=== PATIENT | male | born 1965 | race Hispanic/Latino ===

== ENCOUNTER 2018-02-22 10:05 | Inpatient (IN) | payer MEDICAID, OTHER ==
[2018-02-22 10:12] VITALS: BMI 21.2
--- NOTE | 2018-02-22 10:18 | C.PDOC ---
History Of Present Illness 52 y/o male presents to ED sent from [facility] for ETOH detox. Patient was medically cleared and accepted by Dr. Allen. At ED patient denies SI/HI, auditory or visual hallucinations. No other complaints at this time. History Per: Patient History/Exam Limitations: no limitations Onset/Duration Of Symptoms: Days Current Symptoms Are (Timing): Still Present Suicide/Self Injury Attempted (Context): None Modifying Factor(s): Alcohol Past Medical History Reviewed: Historical Data, Nursing Documentation, Vital Signs - Medical History PMH: No Chronic Diseases Surgical History: No Surg Hx Family History: States: No Known Family Hx Review Of Systems Constitutional: Negative for: Fever, Chills Cardiovascular: Negative for: Chest Pain Gastrointestinal: Negative for: Nausea, Vomiting Psych: Positive for: Other (Susbtance abuse). Negative for: Suicidal ideation, Withdrawal Physical Exam - Physical Exam Appears: Non-toxic, No Acute Distress Skin: Warm, Dry, No Rash Head: Atraumatic, Normacephalic Eye(s): bilateral: Normal Inspection Oral Mucosa: Moist Neck: Supple Cardiovascular: Rhythm Regular Respiratory: Normal Breath Sounds, No Rales, No Rhonchi, No Wheezing Gastrointestinal/Abdominal: Soft, No Tenderness, No Guarding, No Rebound Neurological/Psych: Oriented x3, Normal Speech, Normal Cognition, Other (Mild tremors to hands bilaterally noted) ED Course And Treatment - Laboratory Results Result Diagrams: 02/22/18 13:32 O2 Sat by Pulse Oximetry: 100 (RA) Pulse Ox Interpretation: Normal Progress Note: Libriuma administered. Patient already accepted by Dr. Allen will go to detox floor. 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 - Scribe Statement The provider has reviewed the documentation as recorded by the Scribkanwal Cagle All medical record entries made by the Bobibkanwal were at my direction and personally dictated by me. I have reviewed the chart and agree that the record accurately reflects my personal performance of the history, physical exam, medical decision making, and the department course for this patient. I have also personally directed, reviewed, and agree with the discharge instructions and disposition. Decision To Admit - Pt Status Changed To: Hospital Disposition Of: Inpatient - Admit Certification Admit to Inpatient:: After my assessment, the patient will require hospitalization for at least two midnights. This is because of the severity of symptoms shown, intensity of services needed, and/or the medical risk in this patient being treated as an outpatient. - InPatient: Physician Admission Certification: I certify that this patient requires 2 or more midnights of care for the following reason:: Will need more then 2 days for detox - . Bed Request Type: Detox Admitting Physician: Caroline Allen Patient Diagnosis: Alcohol dependence
--- NOTE | 2018-02-22 10:54 | PCM.BM ---
<Marlyn Hernandez - Last Filed: 02/22/18 10:53> Treatment Plan Problems - Problems identified on initial assessmt Potential for alcohol withdrawal Date Initiated: 02/22/18 Assessment reference: NA Status: Active Treatment assets and liabiliti Patient Assests: ADL independent, negotiates basic needs Patient Liabilities: financial problems, poor support system, relationship conflicts, substance abuse - Milieu Protocol Maintain good personal hygiene: daily Encourage regular showers, daily Remind patient to perform daily oral care, daily Assist patient to perform ADL's, every shift Encourage regular showers, every shift Remind patient to perform daily oral care, every shift Assist patient to perform ADL's Maintain personal safety: daily Educate patient to report safety concerns to staff, daily Monitor environment for contraband/sharps, every shift Educate patient to report safety concerns to staff, every shift Monitor environment for contraband/sharps Medication safety: Monitor for expected outcome, potential side effects: daily, every shift, Assess barriers to learning: daily, every shift, Assess readiness for medication education: daily, every shift <Samaria Rodriguez - Last Filed: 02/22/18 11:34> - Diagnosis (1) Alcohol dependence Status: Acute Interventions: 02/22/18 11:34 * Assess 7x/week regarding severity of withdrawal * Educate regarding risks, benefits, side effects and alternatives of medications * Use Motivational Interviewing for abstinence * Use CBT for relapse prevention * Medication management for withdrawal symptoms * Encourage medication assisted treatment *
--- NOTE | 2018-02-22 11:34 | PCM.PSYCH ---
Initial Psychiatric Evaluation - Initial Psychiatric Evaluation Type of Admission: Voluntary Legal Status: Capacity Chief Complaint (in patient's own words): "Too much alcohol" History of Present Illness and Precipitating Events: Pt is a a 52 year old male who is single with one child who is 12 years old. 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 He is cooperative and visibly "withdrawing" with the shakes. Pt began drinking when he was 13 years old but for the past 5 years has been drinking heavily. He drinks 1 pint of vodka a day and the last time was the day before admission. Pt had been sober before for 6-7 years when his daughter was born. Pt denies any seizures related to alcohol use. He has been to two rehabilitation centers which are [facility] and [place]. He has also been in one detoxification at [facility]. Pt has been taking Zoloft one pill a day since his stay there a month ago. He also admits to taking Xanax on and off. Pt smokes 1 pack of cigarettes a day but denies any other substances. He has been hospitalized for psychiatric conditions 5-6 times in his life. Pt is open to entering a prison facility after this detoxification. He is feeling anxious and depressed. Pt denies any suicidal thoughts or attempts in the past. Pt denies any auditory or visual hallucinations, delusions or aamir. Past Medical History: Denies Allergies: Denies Surgical History: Denies Psychiatric History: Depressive disorder Family History: Mother from alcohol use d/o at 49 Legal History: Denies Past Psychiatric History - Past Psychiatric History Previous Treatment History: Intensive Outpatient Pertinent Medical Hx (Current Medical&Sleep Prob, Allergies): Allergies Allergy/AdvReac Type Severity Reaction Status Date / Time No Known Allergies Allergy Verified 02/22/18 10:10 No Known Home Med 02/22/18 Review of Systems - Neurological Neurological: Tremor - Psychiatric Psychiatric: Abnormal Sleep Pattern, Anhedonia, Anxiety, Depression, Difficulty Concentrating. absent: Homicidal Ideation, Paranoia, Suicidal Ideation Mental Status Examination - Personal Presentation Personal Presentation: Looks stated age - Affect Affect: Constricted - Motor Activity Motor Activity: Calm - Reliability in Providing Information Reliability in Providing Information: Good - Speech Speech: Organized - Mood Mood: Depressed, Anxious - Formal Thought Process Formal Thought Process: No Impairment - Cognitive Functions Orientation: Person, Place, Situation, Time Sensorium: Alert Attention/Concentration: Easily distracted Estimate of Intelligence: Average Judgement: Intact, as evidence by: Insight regarding need for hospitalization Memory: Recent intact, as evidence by: Ability to recall events of the day, Remote intact, as evidenced by: Abilit to recall sig. 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 Attend groups and activities Supportive therapy and psychoeducation ND for abstinence CBT for relapse prevention Encourage MAT Refer to rehab or IOP Attend self-help groups as well ND for smoking cessation and patch if needed 34 min Projected ELOS: 4-5 days Prognosis: good w treatment - Smoking Cessation Smoking Cessation Initiated: Yes
[2018-02-22] MEDS: Multiple Vitamins Tab PO SCH (12:30)
[2018-02-22 13:51] LABS: ALB/GLOB RATIO 1.3 (1.0-2.1); ALBUMIN 4.4 g/dL (3.5-5.0); ALT/SGPT 123 U/L (21-72); AST/SGOT 142 U/L (17-59); BLOOD UREA NITROGEN 9 mg/dL (9-20); CALCIUM 9.3 mg/dl (8.6-10.4); GFR NON-AFRICAN AMERICAN > 60
[2018-02-23] MEDS: Multiple Vitamins Tab PO SCH (10:07)
--- NOTE | 2018-02-23 23:10 | PCM.PYCHPN ---
Psychiatric Progress Note - Psychiatric Progress Note Patient seen today, length of contact: 16 min Patient Chief Complaint: "A little better" Problems Identified/Issues Discussed: The pt is seen, chart reviewed, case discussed with staff. The pt is compliant with medications and reports no side-effects. Symptoms are improving but needs more time to stabilize. After care discussed, support and psychoeducation given. Medication Change: Yes (detox changes daily) Medical Record Reviewed: Yes Mental Status Examination - Cognitive Function Orientation: Person, Place, Situation, Time Memory: Intact Attention: WNL Concentration: Poor Association: WNL Fund of Knowledge: WNL - Mood Mood: Depressed, Anxious - Affect Affect: Constricted - Speech Speech: Appropriate - Formal Thought Process Formal Thought Process: No Impairment - Suicidal Ideation Suicidal Ideation: No - Homicidal Ideation Homicidal Ideation: No Goal/Treatment Plan - Goal/Treatment Plan Need for Continued Stay: Discharge may exacerbated symptoms, Severe functional impairment Progress Toward Problem(s) and Goals/Treatment Plan: Librium detox remeron for depression and insomnia Monitor LFTs As needed medications Gabapentin for augmentation if needed All risks, benefits and alternatives of medications, including no medications, discussed and the patient understood and agreed. Attend groups and activities Supportive therapy and psychoeducation LA for abstinence CBT for relapse prevention Encourage MAT Refer to rehab or IOP Attend self-help groups as well LA for smoking cessation and patch if needed
[2018-02-24] MEDS: Multiple Vitamins Tab PO SCH (09:59)
[2018-02-25] MEDS: Multiple Vitamins Tab PO SCH (10:00)
[2018-02-26] MEDS: Multiple Vitamins Tab PO SCH (09:59)
--- NOTE | 2018-02-26 11:52 | PCM.PYCHPN ---
Psychiatric Progress Note - Psychiatric Progress Note Patient seen today, length of contact: 16 min Patient Chief Complaint: "So so" Problems Identified/Issues Discussed: The pt is seen, chart reviewed, case discussed with staff. Support and psychoeducation given, CBT and AK used briefly No new symptoms reported, improving slowly and needs more time No SEs from medications, risks discussed. After care discussed Medication Change: Yes (detox changes daily) Medical Record Reviewed: Yes Mental Status Examination - Cognitive Function Orientation: Person, Place, Situation, Time Memory: Intact Attention: WNL Concentration: Poor Association: WNL Fund of Knowledge: WNL - Mood Mood: Depressed, Anxious - Affect Affect: Constricted - Speech Speech: Appropriate - Formal Thought Process Formal Thought Process: No Impairment - Suicidal Ideation Suicidal Ideation: No - Homicidal Ideation Homicidal Ideation: No Goal/Treatment Plan - Goal/Treatment Plan Need for Continued Stay: Discharge may exacerbated symptoms, Severe functional impairment Progress Toward Problem(s) and Goals/Treatment Plan: Librium detox remeron for depression and insomnia Monitor LFTs As needed medications Gabapentin for augmentation if needed All risks, benefits and alternatives of medications, including no medications, discussed and the patient understood and agreed. Attend groups and activities Supportive therapy and psychoeducation AK for abstinence CBT for relapse prevention Encourage MAT Refer to rehab or IOP Attend self-help groups as well AK for smoking cessation and patch if needed
--- NOTE | 2018-02-26 11:53 | PCM.PYCHPN ---
Psychiatric Progress Note - Psychiatric Progress Note Patient seen today, length of contact: 16 min Patient Chief Complaint: "I feel better" Problems Identified/Issues Discussed: The pt is seen, chart reviewed, case discussed with staff. The pt is compliant with medications and reports no side-effects. Symptoms are improving but needs more time to stabilize. Pt attends groups and activities. Support given, psycho-education provided. After care discussed. Medication Change: Yes (detox changes daily) Medical Record Reviewed: Yes Mental Status Examination - Cognitive Function Orientation: Person, Place, Situation, Time Memory: Intact Attention: WNL Concentration: Poor Association: WNL Fund of Knowledge: WNL - Mood Mood: Depressed, Anxious - Affect Affect: Constricted - Speech Speech: Appropriate - Formal Thought Process Formal Thought Process: No Impairment - Suicidal Ideation Suicidal Ideation: No - Homicidal Ideation Homicidal Ideation: No Goal/Treatment Plan - Goal/Treatment Plan Need for Continued Stay: Discharge may exacerbated symptoms, Severe functional impairment Progress Toward Problem(s) and Goals/Treatment Plan: Librium detox remeron for depression and insomnia Monitor LFTs As needed medications Gabapentin for augmentation if needed All risks, benefits and alternatives of medications, including no medications, discussed and the patient understood and agreed. Attend groups and activities Supportive therapy and psychoeducation PR for abstinence CBT for relapse prevention Encourage MAT Refer to rehab or IOP Attend self-help groups as well PR for smoking cessation and patch if needed
--- NOTE | 2018-02-26 11:53 | PCM.PYCHPN ---
Psychiatric Progress Note - Psychiatric Progress Note Patient seen today, length of contact: 15 min Patient Chief Complaint: "I'm doing OK now" Problems Identified/Issues Discussed: The pt is seen, chart reviewed, case discussed with staff. Support and psychoeducation given, CBT and [place] used briefly No new symptoms reported, improving slowly and needs more time No SEs from medications, risks discussed. After care discussed Medication Change: Yes (detox changes daily) Medical Record Reviewed: Yes Mental Status Examination - Cognitive Function Orientation: Person, Place, Situation, Time Memory: Intact Attention: WNL Concentration: Poor Association: WNL Fund of Knowledge: WNL - Mood Mood: Depressed, Anxious - Affect Affect: Constricted - Speech Speech: Appropriate - Formal Thought Process Formal Thought Process: No Impairment - Suicidal Ideation Suicidal Ideation: No - Homicidal Ideation Homicidal Ideation: No Goal/Treatment Plan - Goal/Treatment Plan Need for Continued Stay: Discharge may exacerbated symptoms, Severe functional impairment Progress Toward Problem(s) and Goals/Treatment Plan: Librium detox remeron for depression and insomnia Monitor LFTs As needed medications Gabapentin for augmentation if needed All risks, benefits and alternatives of medications, including no medications, discussed and the patient understood and agreed. Attend groups and activities Supportive therapy and psychoeducation [place] for abstinence CBT for relapse prevention Encourage MAT Refer to rehab or IOP Attend self-help groups as well [place] for smoking cessation and patch if needed
[2018-02-27 06:00] VITALS: RESP 19
--- NOTE | 2018-02-27 08:48 | PCM.PYCHDC ---
Mental Status Examination - Mental Status Examination Orientation: Person, Place, Situation, Time Memory: Intact Mood: Anxious Affect: Broad Speech: Appropriate Attention: WNL Concentration: WNL Association: WNL Fund of Knowledge: WNL Formal Thought Process: No Impairment Suicidal Ideation: No Current Homicidal Ideation?: No Discharge Summary - Discharge Note Consultations:: List each consultation separately and include: 1. Reason for request. 2. Findings. 3. Follow-up Summary of Hospital Course include:: 1. Description of specific treatment plan utilized for patients during their course of treatmen. 2. Summarize the time- course for resolution of acute symptoms and/or regressed behaviors. 3. Describe issues identified and worked on during hospitalization. 4. Describe medication utilized. 5. Describe medical problems identified and treated. 6. Reassessment of suicide risk Summary of Hospital Course: On Admission: Hospital course: The pt was admitted and started on treatment with psychotherapy, support, psychoeducation and medications. VT and CBT used. The pt attended groups and activities, as well as milieu therapy. All the risks and benefits of medications are discussed and the patient understood and agreed. The pt improved with the treatments provided. After care discussed with the patient. Pt is a a 52 year old male who is single with one child who is 12 years old. 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 He is cooperative and visibly "withdrawing" with the [employer]. Pt began drinking when he was 13 years old but for the past 5 years has been drinking heavily. He drinks 1 pint of vodka a day and the last time was the day before admission. Pt had been sober before for 6-7 years when his daughter was born. Pt denies any seizures related to alcohol use. He has been to two rehabilitation centers which are [facility] and [facility]. He has also been in one detoxification at [facility]. Pt has been taking Zoloft one pill a day since his stay there a month ago. He also admits to taking Xanax on and off. Pt smokes 1 pack of cigarettes a day but denies any other substances. He has been hospitalized for psychiatric conditions 5-6 times in his life. Pt is open to entering a correction facility after this detoxification. He is feeling anxious and depressed. Pt denies any suicidal thoughts or attempts in the past. Pt denies any auditory or visual hallucinations, delusions or aamir. Past Medical History: Denies Allergies: Denies Surgical History: Denies Psychiatric History: Depressive disorder Family History: Mother from alcohol use d/o at 49 Legal History: Denies He went to [facility] in . 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 Follow after care plan as discussed. Use relapse prevention skills Return to ER or call 911 if suicidal, homicidal or symptoms relapse. Stay away from stress, alcohol and drugs. See primary doctor regularly and get labs. Prescriptions/Medication Reconciliation: Escitalopram [Lexapro] 10 mg PO DAILY #30 tab Mirtazapine [Remeron] 15 mg PO HS #30 tab traZODone [Desyrel] 100 mg PO HS PRN #30 tab PRN Reason: Insomnia
[2018-02-27] MEDS: Multiple Vitamins Tab PO SCH (09:36)
[2018-02-27 10:10] VITALS: BP 100/69; PULSE 90; TEMP 97.8; O2SAT 97
== END 2018-02-27 10:51 | disposition home or self-care (01) | DRG 772 ==
LOC: C.ER 10:05 → C.7D 10:20
PROVIDERS: ADMIT Psychiatry & Neurology Psychiatry; ATTEND Psychiatry & Neurology Psychiatry
PROC: HZ2ZZZZ Detoxification Services for Substance Abuse Treatment (ICD-10-PCS; principal; 2018-02-22)
PROC: HZ52ZZZ Individual Psychotherapy for Substance Abuse Treatment, Cognitive-Behavioral (ICD-10-PCS; 2018-02-22)
PROC: HZ59ZZZ Individual Psychotherapy for Substance Abuse Treatment, Supportive (ICD-10-PCS; 2018-02-22)
PROC: HZ56ZZZ Individual Psychotherapy for Substance Abuse Treatment, Psychoeducation (ICD-10-PCS; 2018-02-22)
PROC: HZ42ZZZ Group Counseling for Substance Abuse Treatment, Cognitive-Behavioral (ICD-10-PCS; 2018-02-22)
PROC: HZ46ZZZ Group Counseling for Substance Abuse Treatment, Psychoeducation (ICD-10-PCS; 2018-02-22)
PROC: GZHZZZZ Group Psychotherapy (ICD-10-PCS; 2018-02-22)
PROC: GZ58ZZZ Individual Psychotherapy, Cognitive-Behavioral (ICD-10-PCS; 2018-02-22)
PROC: GZ56ZZZ Individual Psychotherapy, Supportive (ICD-10-PCS; 2018-02-22)
DX: F10.230 Alcohol dependence with withdrawal, uncomplicated (principal); F33.1 Major depressive disorder, recurrent, moderate; Y90.9 Presence of alcohol in blood, level not specified; F10.24 Alcohol dependence with alcohol-induced mood disorder; Z59.0 Homelessness; F17.210 Nicotine dependence, cigarettes, uncomplicated; G47.00 Insomnia, unspecified